=== PATIENT | male | born 1975 | race Hispanic/Latino ===

== ENCOUNTER 2016-12-21 19:26 | Emergency (ER) | payer OTHER ==
[2016-12-21 20:01] VITALS: BP 126/55; PULSE 71; RESP 16; TEMP 98.2; O2SAT 100
[2016-12-21] MEDS ORDERED: TDAP Vaccine 0.5 mL Syr IM ONE (20:12)
[2016-12-21] MEDS ORDERED: Liquid Adhesive TOP ONE (20:13)
--- NOTE | 2016-12-21 20:38 | ED PDOC ---
HPI: Eye Injury/Pain Time Seen by Provider: 12/21/16 20:02 Chief Complaint (Nursing): Eye Problem Chief Complaint (Provider): Eye Injury History Per: Patient History/Exam Limitations: no limitations Onset/Duration Of Symptoms: Hrs ( ) Current Symptoms Are (Timing): Still Present Injury To Eye?: Yes Additional Complaint(s): 41 year old male presents to ED with complaints of eye pain since earlier today and has a past medical history of DM (Type I). Patient states that he struck himself with the sharp end of a flathead screwdriver on the left side of his face. Notes laceration, (-) LOC or vision change. PCP: Non [facility]PH Past Medical History Reviewed: Historical Data, Nursing Documentation, Vital Signs Vital Signs: Last Vital Signs Temp 98.2 F 12/21/16 19:59 Pulse 71 12/21/16 19:59 Resp 16 12/21/16 19:59 BP 126/55 L 12/21/16 19:59 Pulse Ox 100 12/21/16 19:59 - Medical History PMH: Diabetes (Type 1) Denies: No Chronic Diseases - Family History Family History: States: No Known Family Hx - Allergies Allergies/Adverse Reactions: Allergies Allergy/AdvReac Type Severity Reaction Status Date / Time nut - unspecified Allergy ANAPHYLAXIS Verified 12/21/16 19:59 shellfish derived Allergy ANAPHYLAXIS Verified 12/21/16 19:59 Review of Systems ROS Statement: Except As Marked, All Systems Reviewed And Found Negative Eyes: Positive for: Pain. Negative for: Vision Change Skin: Positive for: Other (Face laceration) Neurological: Negative for: Other (LOC) Physical Exam - Reviewed Nursing Documentation Reviewed: Yes Vital Signs Reviewed: Yes - Physical Exam Appears: Positive for: Non-toxic, No Acute Distress Head Exam: Positive for: NORMOCEPHALIC. Negative for: ATRAUMATIC (Left maxillary 1 cm superficial laceration, no active bleeding) Skin: Positive for: Normal Color, Warm, Dry Eye Exam: Positive for: EOMI, Conjunctival injection (minimal), Other ( Ecchymosis and tenderness in left infraorbital area. No fluorescein uptake) ENT: Positive for: Normal ENT Inspection Neck: Positive for: Normal (no cervical tenderness) Extremity: Positive for: Normal ROM Neurologic/Psych: Positive for: Alert, Oriented, Gait (steady). Negative for: Motor/Sensory Deficits, Aphasia, Facial Droop - ECG O2 Sat by Pulse Oximetry: 100 (RA) Pulse Ox Interpretation: Normal - CT Scan/US CT maxillofacial w/o contrast Other Rad Studies (CT/US): Read By Radiologist (no fx) Medical Decision Making Medical Decision Makin Initial impression: facial contusion Initial plan: * CT MAXILLOFACIAL * TDAP Vaccine 0.5mL IM * Adhesive 0.66mL TOP Scribe Attestation: Documented by Yanelis Hull acting as a scribe for Js Ravi PA-C. MD Scribe Attestation: All medical record entries made by the Scribe were at my direction and personally dictated by me. I have reviewed the chart and agree that the record accurately reflects my personal performance of the history, physical exam, medical decision making, and the department course for this patient. I have also personally directed, reviewed, and agree with the discharge instructions and disposition. Procedures - Time-Out Type of Procedure: facial laceration Site of Procedure: L maxillary Correct Patient (with visual ID + MR# on ID Band): Yes Correct Procedure: Yes PA/Tech: Breonna - Laceration/Wound Repair Facial laceration Wound Length (cm): 1 Wound's Depth, Shape: superficial Wound Explored: no foreign body removed Irrigated w/ Saline (ccs): 200 Wound Repaired With: Skin adhesive Wound Complexity: Simple Disposition - Clinical Impression Clinical Impression: Facial laceration, Head injury - Patient ED Disposition Is Patient to be Admitted: No - Disposition Disposition: Routine/Home Disposition Time: 21:27 Condition: STABLE Instructions: Skin Adhesive Care (ED), Head Injury (ED)
--- NOTE | 2016-12-22 08:36 | CT ---
PROCEDURE: CT MAXILLOFACIAL BONES WITHOUT CONTRAST HISTORY: trauma COMPARISON: None TECHNIQUE: Contiguous axial CT images of the maxillofacial bones were obtained. Coronal and sagittal reformats were generated. Radiation dose: Total exam DLP = 736 mGy-cm. FINDINGS: NASAL BONES: Unremarkable. ORBITS: There is evidence of scattered areas of air within the medial aspect of the orbit. This does not appear to be retro-orbital region, and more than likely in the medial preseptal soft tissues. A portion of the air is adjacent to the frontoethmoid recess on the left. Minimal amount of air is seen in the right preseptal region. Orbital floor is intact on the left and right. Lamina papyracea appear intact bilaterally. No fluid is seen in the left maxillary sinus. Mild mucosal thickening is seen in the ethmoid air cells. Sphenoid sinus and visualized frontal sinuses are otherwise unremarkable. Mastoid air cells are well aerated. Nasal septum is deviated to the right. No nasal cavity masses are noted. Preseptal soft tissue swelling is identified on the left. PARANASAL SINUSES/ MASTOIDS: See above MAXILLA: Intact MANDIBLE/ TEMPOROMANDIBULAR JOINTS: Unremarkable. SKULL BASE: Unremarkable. TEMPORAL BONES: Middle ears and mastoid grossly unremarkable. OTHER FINDINGS: Zygoma are intact. Sella is normal in outline. IMPRESSION: Small foci of air are identified in the medial and anterior orbit region. There is a single small areas seen inferiorly. These are more than likely preseptal in location. No appreciable orbital fracture is identified. These are more than likely related to soft tissue injury rather than fracture. However, a subtle nondisplaced orbital floor or lamina papyracea fracture cannot be excluded given the amount of air. Emergency room physician called with the report.
== END 2016-12-21 21:44 | disposition home or self-care (01) ==
LOC: H.ER 19:26
DX: S01.81XA Laceration without foreign body of other part of head, initial encounter (principal); S09.90XA Unspecified injury of head, initial encounter; E10.9 Type 1 diabetes mellitus without complications